=== PATIENT | male | born 1955 | race Caucasian/White ===

== ENCOUNTER 2021-08-02 11:02 | Inpatient (IN) | payer OTHER, MEDICARE ==
[2021-08-02] MEDS ORDERED: Sodium Chloride 0.9% 2.5 ML Syringe FLUSH PRN (11:18)
[2021-08-02] MEDS ORDERED: Sodium Chloride 0.9% 10 ML Syringe FLUSH PRN (11:18)
[2021-08-02] MEDS ORDERED: Sodium Chloride 0.9% 1,000 ML IV ONE (11:24)
[2021-08-02] MEDS ORDERED: Ketorolac 30 MG/ML SDV IVPUSH ONE (11:36)
[2021-08-02] MEDS ORDERED: cefTRIAXone 1 GM in Sodium Chloride 0.9% 50 ML IV ONE (11:36)
[2021-08-02 13:17] LABS: BLOOD UREA NITROGEN,BUN 12 mg/dL (7.0-18.0); CARBON DIOXIDE,CO2 27.5 mmol/L (21.0-32.0); CHLORIDE,CL 99 mmol/L (98-107); GLUCOSE RANDOM 202 mg/dL (74-106); POTASSIUM,K 3.6 mmol/L (3.5-5.1); SODIUM,NA 135 mmol/L (136-148)
[2021-08-02 14:16] LABS: CORONAVIRUS COVID-19 NAA NEGATIVE (NEGATIVE); INFLUENZA A NAA NEGATIVE (NEGATIVE); INFLUENZA B NAA NEGATIVE (NEGATIVE)
[2021-08-02] MEDS ORDERED: Albuterol/Ipratropium 3.0-0.5 MG/3 ML Neb Soln NEB PRN (15:15)
[2021-08-02] MEDS ORDERED: Ondansetron 4 MG/2 ML SDV IVPUSH PRN (15:15)
[2021-08-02] MEDS: Pantoprazole 40 MG in Sodium Chloride 0.9% 10 ML IVPUSH SCH (16:03)
[2021-08-02] MEDS: Lactated Ringers 1,000 ML IV SCH ×2 (16:04→23:51)
[2021-08-02] MEDS: Enoxaparin 40 MG/0.4 ML Syringe SUBCUT SCH (16:04)
[2021-08-02] MEDS: Acetaminophen 325 MG Tab PO PRN (16:20)
[2021-08-02] MEDS ORDERED: 50% Dextrose in Water 50 ML Syringe IVPUSH PRN (18:01)
[2021-08-02] MEDS ORDERED: Glucagon,Human Recombinant 1 MG Vial IM PRN (18:01)
[2021-08-02] MEDS: Ketorolac 30 MG/ML SDV IVPUSH PRN (18:47)
[2021-08-03] MEDS: Acetaminophen 325 MG Tab PO PRN ×4 (00:39→20:11)
[2021-08-03] MEDS: Ketorolac 30 MG/ML SDV IVPUSH PRN ×4 (00:47→20:10)
[2021-08-03] MEDS: Insulin Aspart 100 Units/ML 3 ML Pen SUBCUT SCH ×3 (06:58→18:08)
[2021-08-03 08:03] LABS: BLOOD UREA NITROGEN,BUN 13 mg/dL (7.0-18.0); CARBON DIOXIDE,CO2 25.7 mmol/L (21.0-32.0); CHLORIDE,CL 104 mmol/L (98-107); GLUCOSE RANDOM 172 mg/dL (74-106); POTASSIUM,K 3.5 mmol/L (3.5-5.1); SODIUM,NA 137 mmol/L (136-148)
[2021-08-03] MEDS: cefTRIAXone 1 GM in Sodium Chloride 0.9% 50 ML IV SCH (08:58)
[2021-08-03] MEDS: Pantoprazole 40 MG in Sodium Chloride 0.9% 10 ML IVPUSH SCH (08:58)
[2021-08-03] MEDS: Lactated Ringers 1,000 ML IV SCH (10:04)
[2021-08-03] MEDS: Enoxaparin 40 MG/0.4 ML Syringe SUBCUT SCH (15:15)
[2021-08-03] MEDS: Atenolol 50 MG Tab PO SCH (19:14)
[2021-08-04] MEDS: Insulin Aspart 100 Units/ML 3 ML Pen SUBCUT SCH ×3 (06:56→17:41)
[2021-08-04 07:05] LABS: BLOOD UREA NITROGEN,BUN 13 mg/dL (7.0-18.0); CARBON DIOXIDE,CO2 23.4 mmol/L (21.0-32.0); CHLORIDE,CL 105 mmol/L (98-107); GLUCOSE RANDOM 182 mg/dL (74-106); POTASSIUM,K 4.1 mmol/L (3.5-5.1); SODIUM,NA 139 mmol/L (136-148)
[2021-08-04] MEDS: Atenolol 50 MG Tab PO SCH (08:27)
[2021-08-04] MEDS: cefTRIAXone 1 GM in Sodium Chloride 0.9% 50 ML IV SCH (08:27)
[2021-08-04] MEDS: Pantoprazole 40 MG in Sodium Chloride 0.9% 10 ML IVPUSH SCH (08:31)
[2021-08-04] MEDS: Tamsulosin 0.4 MG Cap.ER PO SCH (09:00)
[2021-08-04] MEDS ORDERED: Sodium Chloride 0.9% 2.5 ML Syringe FLUSH PRN (10:31)
[2021-08-04] MEDS ORDERED: Sodium Chloride 0.9% 10 ML Syringe FLUSH PRN (10:31)
[2021-08-04] MEDS: Acetaminophen 325 MG Tab PO PRN ×2 (16:07→23:16)
[2021-08-04] MEDS: Enoxaparin 40 MG/0.4 ML Syringe SUBCUT SCH (16:07)
[2021-08-04] MEDS: Ketorolac 30 MG/ML SDV IVPUSH PRN ×2 (16:08→23:15)
[2021-08-05] MEDS: Acetaminophen 325 MG Tab PO PRN (06:21)
[2021-08-05 07:07] LABS: BLOOD UREA NITROGEN,BUN 15 mg/dL (7.0-18.0); CARBON DIOXIDE,CO2 26.9 mmol/L (21.0-32.0); CHLORIDE,CL 105 mmol/L (98-107); GLUCOSE RANDOM 173 mg/dL (74-106); POTASSIUM,K 3.4 mmol/L (3.5-5.1); SODIUM,NA 140 mmol/L (136-148)
[2021-08-05] MEDS ORDERED: Pantoprazole 40 MG Tab.CR PO SCH (07:30)
[2021-08-05] MEDS: Insulin Aspart 100 Units/ML 3 ML Pen SUBCUT SCH (08:04)
[2021-08-05] MEDS: Atenolol 50 MG Tab PO SCH (08:11)
[2021-08-05] MEDS: cefTRIAXone 1 GM in Sodium Chloride 0.9% 50 ML IV SCH (08:13)
[2021-08-05] MEDS: Tamsulosin 0.4 MG Cap.ER PO SCH (08:13)
[2021-08-05] MEDS: Ketorolac 30 MG/ML SDV IVPUSH PRN (08:22)
== END 2021-08-05 10:55 | disposition home or self-care (01) | DRG 690 ==
LOC: MW.ED 11:02 → MW.MS 13:44
PROVIDERS: ADMIT Student in an Organized Health Care Education/Training Program; ATTEND Student in an Organized Health Care Education/Training Program
DX: N10 Acute pyelonephritis (principal); Z87.442 Personal history of urinary calculi; E87.1 Hypo-osmolality and hyponatremia; Z79.84 Long term (current) use of oral hypoglycemic drugs; Z79.899 Other long term (current) drug therapy; N40.1 Benign prostatic hyperplasia with lower urinary tract symptoms; R33.8 Other retention of urine; E11.9 Type 2 diabetes mellitus without complications; E78.2 Mixed hyperlipidemia; I10 Essential (primary) hypertension; N41.9 Inflammatory disease of prostate, unspecified; Z20.822 Contact with and (suspected) exposure to COVID-19; Z88.8 Allergy status to other drugs, medicaments and biological substances
CPT/HCPCS: 0240U; 36415; 51798; 74176; 80048; 80053; 81001; 82947; 83605; 83690; 83735; 84100; 85025; 87040; 87086; 96361; 96365; 96375; 99285; A9270-GY; C9113; J0696; J1650; J1815-GY; J1885; J3490; J7030; J7120

== ENCOUNTER 2021-08-31 11:28 | Emergency (ER) | payer OTHER, MEDICARE | END 2021-08-31 14:31 | disposition left against medical advice (07) | LOC: MW.ED 11:28 | DX: Z53.21 Procedure and treatment not carried out due to patient leaving prior to being seen by health care provider (principal) ==

== ENCOUNTER 2021-09-01 06:13 | Emergency (ER) | payer OTHER, MEDICARE ==
[2021-09-01] MEDS ORDERED: Ciprofloxacin 500 MG Tab PO ONE (06:42)
== END 2021-09-01 07:00 | disposition home or self-care (01) ==
LOC: MW.ED 06:13
DX: N41.9 Inflammatory disease of prostate, unspecified (principal); I10 Essential (primary) hypertension; E11.9 Type 2 diabetes mellitus without complications; E78.00 Pure hypercholesterolemia, unspecified; Z88.5 Allergy status to narcotic agent; Z88.8 Allergy status to other drugs, medicaments and biological substances
CPT/HCPCS: 81001; 87086; 99283; A9270; 87088; 87186

== ENCOUNTER 2022-01-19 07:34 | Day surgery (SDC) | payer MEDICARE, OTHER ==
[~2022-01-19 07:34] MED LIST: Lactated Ringers 1,000 ML IV SCH; Sodium Chloride 0.9% 10 ML Syringe FLUSH PRN; Sodium Chloride 0.9% 2.5 ML Syringe FLUSH PRN; Sodium Chloride 0.9% 20 ML SDV IV PRN
[2022-01-19] MEDS ORDERED: Midazolam 1 MG/ML 2 ML SDV ONE (08:10)
[2022-01-19] MEDS ORDERED: Propofol 200 MG/20 ML SDV ONE (08:31)
== END 2022-01-19 09:45 | disposition home or self-care (01) ==
LOC: MW.SDS 07:34
PROVIDERS: ATTEND Surgery
DX: K31.7 Polyp of stomach and duodenum (principal); K21.9 Gastro-esophageal reflux disease without esophagitis; K44.9 Diaphragmatic hernia without obstruction or gangrene; I10 Essential (primary) hypertension; E11.9 Type 2 diabetes mellitus without complications; G43.909 Migraine, unspecified, not intractable, without status migrainosus; E66.9 Obesity, unspecified; Z68.38 Body mass index [BMI] 38.0-38.9, adult; Z88.5 Allergy status to narcotic agent; Z98.890 Other specified postprocedural states; E78.00 Pure hypercholesterolemia, unspecified; Z79.899 Other long term (current) drug therapy; Z79.84 Long term (current) use of oral hypoglycemic drugs; Z88.1 Allergy status to other antibiotic agents
CPT/HCPCS: 43239; 88305; J2250; J2704; J7120; 00731

== ENCOUNTER 2023-04-20 07:15 | Emergency (ER) | payer OTHER, MEDICARE ==
[2023-04-20] MEDS: Methocarbamol 750 MG Tab PO STA (07:55)
[2023-04-20] MEDS: Lidocaine 4% 1 each Patch TOP STA (07:56)
[2023-04-20] MEDS: Ketorolac 30 MG/ML SDV IM ONE (07:56)
== END 2023-04-20 08:21 | disposition home or self-care (01) ==
LOC: MW.ED 07:15
DX: M54.50 Low back pain, unspecified (principal); I10 Essential (primary) hypertension; E78.00 Pure hypercholesterolemia, unspecified; K21.9 Gastro-esophageal reflux disease without esophagitis; E11.9 Type 2 diabetes mellitus without complications; Z79.84 Long term (current) use of oral hypoglycemic drugs; Z79.899 Other long term (current) drug therapy; Z88.1 Allergy status to other antibiotic agents; Z88.8 Allergy status to other drugs, medicaments and biological substances; V49.49XA Driver injured in collision with other motor vehicles in traffic accident, initial encounter; Y92.410 Unspecified street and highway as the place of occurrence of the external cause
CPT/HCPCS: 72110; 96372; 99283; A9270; J1885